=== PATIENT | male | born 1940 | race Caucasian/White ===

== ENCOUNTER 2024-01-22 08:05 | Day surgery (SDC) | payer OTHER, SELFPAY ==
[2024-01-22 12:42] VITALS: BP 156/78
[2024-01-22 15:19] VITALS: BP 126/66
[2024-01-22 15:30] VITALS: BP 118/66
[2024-01-22 15:45] VITALS: BP 138/69
[2024-01-22 15:51] VITALS: BP 154/72
== END 2024-01-22 16:00 | disposition home or self-care (01) ==
LOC: SDS 08:05
PROVIDERS: ATTENDING PHYSICIAN Internal Medicine Gastroenterology
DX: K86.9 Disease of pancreas, unspecified (principal); R93.5 Abnormal findings on diagnostic imaging of other abdominal regions, including retroperitoneum; K80.20 Calculus of gallbladder without cholecystitis without obstruction
CPT/HCPCS: 43259

== ENCOUNTER 2024-04-04 20:13 | Emergency (ER) | payer OTHER, SELFPAY ==
--- NOTE | 2024-04-04 22:04 | ED.GENMED ---
History of Present Illness
<CECILE Clifford - Last Filed: 04/04/24 22:43>
General
Chief Complaint: Urinary Symptoms
Time Seen by Provider: 04/04/24 22:04
History of Present Illness
History of Present Illness:
Patient is an 83 year old male with a PMH of prostate cancer presenting to the ED with dysuria x 1 day. Patient states this started last night and he had a bad burning sensation when urinating and had increased frequency and urgency. He tried taking
azo to relieve the symptoms. The frequency and urgency is constant and patient claims he has been going to the bathroom every couple of minutes for the entire day. He also reports associated nausea and vomiting but denies any abdominal pain. The
vomit is bilious. Patient denies any hematuria discharge dizziness chest pain sob palpitations.
Patient denies any history of UTIs or kidney stones, but has had radiation treatment for prostate cancer 2 years ago and takes testosterone shots.
Review of Systems
<CECILE Clifford - Last Filed: 04/04/24 22:43>
Review of Systems
Constitutional: Reports fatigue
Respiratory: Reports no symptoms
Cardiac: Reports no symptoms
ABD/GI: Reports nausea and vomiting
: Reports dysuria, frequency, difficulty voiding and urgency
Phy Exam
<CECILE Clifford - Last Filed: 04/04/24 22:43>
Cardiovascular Exam
Cardiovascular Exam: regular rate/rhythm, no edema, no gallop, no JVD and no murmur
Pulmonary Exam
Pulmonary Exam: lungs clear, no respiratory distress, no rales, chest non tender, no crackles, no rhonchi, no stridor, no wheezing and no cough
Gastrointestinal Exam
Gastrointestinal Exam: non tender, soft, no pulsatile mass and non distended
<John Grewal DO - Last Filed: 04/05/24 00:40>
Physical Exam
Physical Exam:
Physical Exam
General: no apparent distress, not acutely ill
Neck: No jaundice
Heart: s1/s2 regular rate and rhythm, no murmur. equal radial pulses.
Lungs: no acute respiratory distress. clear bilaterally
Abdomen: Soft nontender
Neuro: alert and oriented. no focal neurological deficits
Skin: no rash
Psychiatric: well kept. interactive and cooperative
Extremities: no edema.
Course
<CECILE Clifford - Last Filed: 04/04/24 22:43>
Orders/Labs/Results
Orders:
Orders
04/04/24 22:34
Bladder Scan- Treatment ONCE
0.9% Sodium Chloride 1000 ml [Nss] 1,000 ml IV BOLUS
CefTRIAXone [Rocephin] 1,000 mg IV NOW STA
Ondansetron Injectable [Zofran] 4 mg IV NOW STA
04/04/24 22:51
Complete Blood Count/With Diff Urgent
Urinalysis Urgent
Date Specimen was Collected: 04/04/24
Time Specimen was Collected: 20:29
Urine Microscopic Urgent
Date Specimen was Collected: 04/04/24
Time Specimen was Collected: 20:29
Urine Culture Urgent
LIANNA Source: Urine
Specimen Description:
Obtained by: Bladder
Date Specimen was Collected: 04/04/24
Time Specimen was Collected: 22:35
04/04/24 23:37
Basic Metabolic Panel Urgent
Comment: CHANGED DUE TO HEMOLYSIS
Abnormal Lab Results
04/04/24 04/04/24
22:51 23:37
WBC 15.5 H 10^3/uL
(4.8-10.8)
RBC 4.60 L 10^6/uL
(4.70-6.10)
MPV 10.7 H fL
(7.4-10.4)
Abs Immat Gran (auto) 0.1 H 10^3/uL
(0-0.05)
Absolute Neuts (auto) 13.9 H 10^3/uL
(1.4-6.5)
Absolute Lymphs (auto) 0.3 L 10^3/uL
(1.2-3.4)
Absolute Monos (auto) 1.1 H 10^3/uL
(0.1-0.6)
Neutrophils % 90.1 H %
(42.2-75.2)
Lymphocytes % 2.0 L %
(20.5-51.1)
Glucose 124 H mg/dl
(70-99)
Urine Ketones 2+ A
(Negative)
Urine Occult Blood 4+ A
(Negative)
Urine Nitrite Positive A
(Negative)
Urine Bilirubin 3+ A
(Negative)
Urine Urobilinogen 3+ A
(Neg - 1+)
Ur Leukocyte Esterase 1+ A
(Negative)
Urine RBC 50-60 A /HPF
(0-2)
Urine WBC 90-100 A /HPF
(0-5)
Urine Bacteria Many A
(Negative)
Urine Albumin 2+ A
(Neg - Trace)
04/04/24 22:51
04/04/24 23:54
Vital Signs
Initial and Last Documented VS:
Initial Vital Signs
Temp Pulse Resp Pulse Ox
97.8 F 100 28 94
04/04/24 20:20 04/04/24 20:20 04/04/24 20:20 04/04/24 20:20
Last Documented Vital Signs
Temp Pulse Resp Pulse Ox
97.8 F 100 28 94
04/04/24 20:20 04/04/24 20:20 04/04/24 20:20 04/04/24 20:20
<John Grewal DO - Last Filed: 04/05/24 00:40>
Orders/Labs/Results
Orders:
Orders
04/04/24 22:34
Bladder Scan- Treatment ONCE
0.9% Sodium Chloride 1000 ml [Nss] 1,000 ml IV BOLUS
CefTRIAXone [Rocephin] 1,000 mg IV NOW STA
Ondansetron Injectable [Zofran] 4 mg IV NOW STA
04/04/24 22:51
Complete Blood Count/With Diff Urgent
Urinalysis Urgent
Date Specimen was Collected: 04/04/24
Time Specimen was Collected: 20:29
Urine Microscopic Urgent
Date Specimen was Collected: 04/04/24
Time Specimen was Collected: 20:29
Urine Culture Urgent
LIANNA Source: Urine
Specimen Description:
Obtained by: Bladder
Date Specimen was Collected: 04/04/24
Time Specimen was Collected: 22:35
04/04/24 23:37
Basic Metabolic Panel Urgent
Comment: CHANGED DUE TO HEMOLYSIS
Abnormal Lab Results
04/04/24 04/04/24
22:51 23:37
WBC 15.5 H 10^3/uL
(4.8-10.8)
RBC 4.60 L 10^6/uL
(4.70-6.10)
MPV 10.7 H fL
(7.4-10.4)
Abs Immat Gran (auto) 0.1 H 10^3/uL
(0-0.05)
Absolute Neuts (auto) 13.9 H 10^3/uL
(1.4-6.5)
Absolute Lymphs (auto) 0.3 L 10^3/uL
(1.2-3.4)
Absolute Monos (auto) 1.1 H 10^3/uL
(0.1-0.6)
Neutrophils % 90.1 H %
(42.2-75.2)
Lymphocytes % 2.0 L %
(20.5-51.1)
Glucose 124 H mg/dl
(70-99)
Urine Ketones 2+ A
(Negative)
Urine Occult Blood 4+ A
(Negative)
Urine Nitrite Positive A
(Negative)
Urine Bilirubin 3+ A
(Negative)
Urine Urobilinogen 3+ A
(Neg - 1+)
Ur Leukocyte Esterase 1+ A
(Negative)
Urine RBC 50-60 A /HPF
(0-2)
Urine WBC 90-100 A /HPF
(0-5)
Urine Bacteria Many A
(Negative)
Urine Albumin 2+ A
(Neg - Trace)
04/04/24 22:51
04/04/24 23:54
Vital Signs
Initial and Last Documented VS:
Initial Vital Signs
Temp Pulse Resp Pulse Ox
97.8 F 100 28 94
04/04/24 20:20 04/04/24 20:20 04/04/24 20:20 04/04/24 20:20
Last Documented Vital Signs
Temp Pulse Resp Pulse Ox
97.8 F 100 28 94
04/04/24 20:20 04/04/24 20:20 04/04/24 20:20 04/04/24 20:20
<CECILE Clifford - Last Filed: 04/04/24 22:43>
MDM/Problems Addressed
Differential Diagnosis Includes:
Prostatitis, UTI, nephrolithiasis, pyelonephritis
MDM/Problems Addressed:
Give fluids and order UA basic blood work and a bladder scan. Give antibiotics nsaids and zofran
<Dangelo Soria DOUGIE - Last Filed: 04/04/24 22:43>
*Critical Care Note
Total Time (30-74mins, 75-104mins- exclusive of procedures): Not Applicable
<John Grewal DO - Last Filed: 04/05/24 00:40>
Update Note
Update Note:
pt feeling better
labs noted
ED Attending Note
<CECILE Clifford - Last Filed: 04/04/24 22:43>
-
Portions of this chart may have been created with voice recognition software.� Occasional wrong word or��sound alike� substitutions may have occurred due to the inherent limitations of voice recognition software.
<John Grewal DO - Last Filed: 04/05/24 00:40>
ED Attending Note
Patient seen and examined by attending physician: Yes
ED Attending Note:
Seen with student examined independently 83-year-old male prostate cancer presents with dysuria frequency nausea vomiting had a urine culture sent today apparently his urologist was going to send in some p.o. antibiotics, he was vomiting, came to
the ER, here he is afebrile denies history of kidney stones, he does have chronic back pain will check urine urine culture labs start on antibiotics in the emetics, bladder scan
Discharge Plan
Departure
Patient Disposition: Home (Routine Discharge)
Date of Disposition: 04/05/24
Time of Disposition: 00:40
Patient with high blood pressure during this ER visit?: No
Condition: Good
Discharge Problem:
Acute UTI
Instructions: Urinary Tract Infection, Adult (DC)
Prescriptions:
New
cefdinir 300 mg capsule
300 mg PO BID Qty: 20 0RF
No Action
rosuvastatin 5 mg Tablet
5 mg PO DAILY
acetaminophen [Tylenol] 325 mg Capsule
650 mg PO Q4H PRN (Reason: pain)
levothyroxine 50 mcg Capsule
50 mcg PO DAILY
phenazopyridine 200 mg tablet
200 mg PO TID PRN (Reason: dysuria) Qty: 30 2RF
Stool Softener 50 mg Capsule
50 mg PO DAILY PRN (Reason: constipation)
omeprazole 40 mg Capsule,Delayed Release(Dr/Ec)
40 mg PO DAILY
famotidine 20 mg Tablet
20 mg PO DAILY
promethazine 25 mg Tablet
25 mg PO Q6H PRN (Reason: nausea)
cholecalciferol (vitamin D3) [Vitamin D3] 25 mcg (1,000 unit) Capsule
25 mcg PO DAILY
Probiotic
660 mg PO DAILY
Referrals:
Jamie Johnson MD [Family Provider] -
Interventions
Interventions:
*Risk Screen - Suicide Last Done: 04/04/24 20:20
*Neglect/Abuse Screening Last Done: 04/04/24 20:20
Discharge Date and Time
Print Language: INDIAN
[2024-04-04] MEDS: NSS 1000 IV (22:55)
[2024-04-04] MEDS: ZOFRAN 4 MG IV (22:55)
[2024-04-04] MEDS: ROCEPHIN 1000 MG IV (22:55)
[2024-04-04 22:59] LABS: % Basophils 0.3 % (0-2); % Eosinophils 0.2 % (0-6); % Immature Granulocytes 0.5 % (0-0.5); % Monocytes 6.9 % (1.7-9.3); % Neutrophils 90.1 % (42.2-75.2); Absolute Basophils 0.1 10^3/uL (0-0.2); Absolute Immature Granulocytes 0.1 10^3/uL (0-0.05); Absolute Lymphocytes 0.3 10^3/uL (1.2-3.4); Absolute Monocytes 1.1 10^3/uL (0.1-0.6); Absolute Neutrophils 13.9 10^3/uL (1.4-6.5); Hematocrit 39.9 % (39.0-52.0); Hemoglobin 14.2 g/dL (13.0-18.0); Mean Corp Hgb Conc. 35.6 g/dL (33.0-37.0); Mean Corpuscular Hgb 30.9 pg (27.0-31.0); Mean Corpuscular Volume 86.7 fL (80.0-94.0); Mean Platelet Volume 10.7 fL (7.4-10.4); Nucleated Red Blood Cells % 0 % (-); Platelet Count 180 10^3/uL (130-400); Red Cell Dist. Width 12.8 % (11.5-14.5); Urine Albumin 2+ (Neg - Trace); Urine Bilirubin 3+ (Negative); Urine Character Slightly Cloudy (Clear); Urine Color Orange; Urine Glucose Negative (Negative); Urine Ketone 2+ (Negative); Urine Leukocyte 1+ (Negative); Urine Nitrite Positive (Negative); Urine Occult Blood 4+ (Negative); Urine Specific Gravity 1.025 (<1.030); Urine Urobilinogen 3+ (Neg - 1+); White Blood Cell Count 15.5 10^3/uL (4.8-10.8)
[2024-04-04 23:04] LABS: Urine Squamous Cell 0-2 /LPF (Few)
[2024-04-04 23:06] LABS: Urine Red Blood Cell 50-60 /HPF (0-2); Urine White Cell 90-100 /HPF (0-5)
[2024-04-04 23:07] LABS: Urine Bacteria Many (Negative)
[2024-04-05 00:18] LABS: Blood Urea Nitrogen 18 mg/dl (9-20); Calcium 9.1 mg/dl (8.4-10.2); Carbon Dioxide 22 mmol/L (22-30); Chloride 106 mmol/L (98-107); Glucose 124 mg/dl (70-99); Sodium 139 mmol/L (135-145); eGFR > 60.00
[2024-04-05 00:48] VITALS: BP 160/68
== END 2024-04-05 00:57 | disposition home or self-care (01) ==
LOC: EMR 20:13
PROVIDERS: Emergency Medicine; EMERGENCY PHYSICIAN Emergency Medicine; FAMILY PHYSICIAN Family Medicine
DX: N39.0 Urinary tract infection, site not specified (principal); R11.2 Nausea with vomiting, unspecified; Z85.46 Personal history of malignant neoplasm of prostate
CPT/HCPCS: 99282; 96374; 96375; 96361; 80048; 81003; 81015; 85025; 87086; 87088; 87186